=== PATIENT | female | born 1995 | race Caucasian/White ===

== ENCOUNTER → 2020-07-12 14:55 | Outpatient (CLI) | payer MEDICAID, SELFPAY ==
[2020-07-12 14:50] VITALS: BMI 31.7
[2020-07-12 15:17] LABS: Absolute Lymphocyte Count 2.22 X10^3/uL (0.83-4.51); Absolute Neutrophil Count 4.9 X10^3/uL (2.0-7.7); Basophil# 0.03 X10^3/uL; Basophil% 0.4 % (0-1); Eosinophils% 1.3 % (0-5); Hemoglobin 12.5 g/dL (12.0-15.0); Lymphocyte # 2.22 X10^3/ul (4.0); Lymphocyte % 28.3 % (19-41); Mean Corp Hgb Conc 32.9 g/dL (32-36); Mean Corpuscular Hgb 28.5 pg (27.0-32.0); Mean Corpuscular Volume 86.8 fL (81-99); Monocyte# 0.63 X10^3/uL; NRBC Flagged by Analyzer 0 % (0-5); Neutrophil # 4.85 X10^3/uL (2.7-7.7); Neutrophil % 61.7 % (47-70); Platelet Count 312 K/mm3 (150-450); RBC Distribution Width CV 11.7 % (11.6-14.6); RBC Distribution Width SD 37.4 fl (35.1-43.9); Red Blood Count 4.38 M/mm3 (4.2-5.4); White Blood Count 7.9 K/mm3 (4.4-11.0)
[2020-07-12 18:11] LABS: Amphetamine Urine VISTA NEGATIVE (<1000 ng/mL); Barbiturate Urine VISTA NEGATIVE (< 200 ng/mL); Benzodiazepine Urine VISTA NEGATIVE (< 200 ng/mL); Cocaine Urine VISTA NEGATIVE (< 300 ng/mL); Ecstacy Urine VISTA NEGATIVE (< 500 ng/mL); Methadone Urine VISTA NEGATIVE (< 300 ng/mL); PCP Urine VISTA NEGATIVE (< 25 ng/mL); THC Urine VISTA NEGATIVE (< 50 ng/mL); Vista UDS pH Range 6
[2020-07-13 09:00] LABS: HIV - WCH Non-Reactive (Nonreactive); Hepatitis B Surface Antigen Non-Reactive (Nonreactive); Hepatitis C Antibody Non-Reactive (Nonreactive)
[2020-07-13 10:20] LABS: Rubella IgG Reactive (Nonreactive)
[2020-07-17 03:06] LABS: Chlamydia By Nucleic Acid AMP Negative (Negative)
[2020-07-17 12:07] LABS: Gonococcus By Nucleic Acid AMP Negative (Negative)
[2020-07-19 02:10] LABS: Rapid Plasmin Reagin (RPR) NONREACTIVE (NONREACTIVE)
== END ==
PROVIDERS: Referring Provider Obstetrics & Gynecology; Visit Provider Obstetrics & Gynecology
DX: Z34.80 Encounter for supervision of other normal pregnancy, unspecified trimester (principal)
CPT/HCPCS: 36415; 80307; 85025; 86592; 86703; 86762; 86803; 86850; 86900; 86901; 87086; 87088; 87340; 87491; 87591

== ENCOUNTER → 2020-08-16 12:09 | Outpatient (CLI) | payer MEDICAID, SELFPAY ==
[2020-08-16 10:59] VITALS: BMI 30.9
[2020-08-16 13:14] LABS: NATERA MAILED SPECIMEN
== END ==
PROVIDERS: Referring Provider Obstetrics & Gynecology; Visit Provider Obstetrics & Gynecology
DX: Z34.82 Encounter for supervision of other normal pregnancy, second trimester (principal); Z31.430 Encounter of female for testing for genetic disease carrier status for procreative management
CPT/HCPCS: 36415

== ENCOUNTER → 2020-11-22 11:02 | Outpatient (CLI) | payer MEDICAID, SELFPAY ==
[2020-11-08 10:54] VITALS: BMI 32.2
[2020-11-22 11:25] LABS: Absolute Lymphocyte Count 1.64 X10^3/uL (0.83-4.51); Absolute Neutrophil Count 5.8 X10^3/uL (2.0-7.7); Basophil# 0.02 X10^3/uL; Basophil% 0.2 % (0-1); Eosinophil# 0.09 X10^3/uL; Eosinophils% 1.1 % (0-5); Hematocrit 33.2 % (37-47); Hemoglobin 10.9 g/dL (12.0-15.0); Lymphocyte # 1.64 X10^3/ul (4.0); Lymphocyte % 19.9 % (19-41); Mean Corp Hgb Conc 32.8 g/dL (32-36); Mean Corpuscular Hgb 29.5 pg (27.0-32.0); Mean Platelet Vol. 9.1 fl (6.2-12.0); Monocyte# 0.63 X10^3/uL; Monocyte% 7.6 % (0-10); NRBC Flagged by Analyzer 0 % (0-5); Neutrophil # 5.82 X10^3/uL (2.7-7.7); Neutrophil % 70.6 % (47-70); Platelet Count 288 K/mm3 (150-450); RBC Distribution Width CV 12.4 % (11.6-14.6); RBC Distribution Width SD 40.9 fl (35.1-43.9); Red Blood Count 3.69 M/mm3 (4.2-5.4); White Blood Count 8.3 K/mm3 (4.4-11.0)
[2020-11-22 11:35] LABS: Glucose Challenge Gest 1H 50g 125 mg/dL (70-140)
== END ==
LOC: LAB 11:03 → PAVLAB 11:07
PROVIDERS: Visit Provider Nurse Practitioner Women's Health
DX: Z13.1 Encounter for screening for diabetes mellitus (principal); Z34.80 Encounter for supervision of other normal pregnancy, unspecified trimester
CPT/HCPCS: 36415; 82950; 85025

== ENCOUNTER 2021-01-03 13:00 | Outpatient (CLI) | payer MEDICAID, SELFPAY ==
[2021-01-03 11:39] VITALS: BMI 33.9
[2021-01-03 13:05] VITALS: BMI 33.7
[2021-01-03 13:40] VITALS: BP 106/65; PULSE 85; TEMP 36.7; O2SAT 99
[2021-01-03 13:42] VITALS: PULSE 82; O2SAT 88
[2021-01-03 13:43] VITALS: BP 106/65; PULSE 85
[2021-01-03] MEDS: Lactated Ringers 1,000 ML 999 ML IV ×2 (13:59→14:55)
--- NOTE | 2021-01-04 16:20 | OB.TRI.PN ---
Progress Notes Date of Service: 01/03/21 Progress Note: Patient presents for triage evaluation secondary to possible late decel on monitor in office. Given 2L of IVF. Monitored for 2 hours with no further decels. Discharged to home in stable condition FHT: Moderate variability reactive no decelerations category I tracing [place]: Irregular Contractions Assessment and plan: Reactive NST, reassuring maternal and status patient discharged to home to follow-up at next scheduled visit. See problem list details for additional plan information. Multi Select Codes - Urinary/Genital Urinary/Genital CPT Codes: 48726-75 non-stress test Interp
== END 2021-01-03 16:15 | disposition home or self-care (01) ==
LOC: WPOUT 13:04 → WP 13:05
PROVIDERS: Referring Provider Obstetrics & Gynecology; Visit Provider Obstetrics & Gynecology
DX: O62.9 Abnormality of forces of labor, unspecified (principal); Z3A.00 Weeks of gestation of pregnancy not specified
CPT/HCPCS: 96360; 96361; 59025; 59050; 99218; J7120; G0378

== ENCOUNTER → 2021-01-21 15:09 | Outpatient (CLI) | payer MEDICAID, SELFPAY ==
[2021-01-16 10:28] VITALS: BMI 33.7
[2021-01-21 16:27] LABS: ALB/GLOB Ratio 0.6 RATIO (0.9-2.4); AST(SGOT) 9 U/L (15-37); Alanine Aminotransfer ALT/SGPT 7 U/L (13-56); Albumin, Serum 2.6 g/dL (3.2-5.0); Alkaline Phosphatase 137 U/L (45-117); Anion Gap 10 (5-15); BUN 3 mg/dL (7-18); BUN/Creat Ratio 5.6 RATIO (10-20); Calcium,Total 8.6 mg/dL (8.5-10.1); Chloride 108 mmol/L (98-107); Creatinine, Serum 0.53 mg/dL (0.55-1.02); EST Glomerular Filtration Rate 149 mL/min (>60); Est Glom Filt Rate - Afr Amer 180 mL/min (>60); Globulin 4.3 g/dL (2.2-4.2); Glucose 114 mg/dL (74-106); Potassium 3.2 mmol/L (3.5-5.1); Protein, Total 6.9 g/dL (6.4-8.2); Sodium Level 138 mmol/L (136-145)
== END ==
PROVIDERS: Referring Provider Obstetrics & Gynecology; Visit Provider Obstetrics & Gynecology
DX: O26.619 Liver and biliary tract disorders in pregnancy, unspecified trimester (principal); K83.1 Obstruction of bile duct; Z3A.00 Weeks of gestation of pregnancy not specified
CPT/HCPCS: 36415; 80053; 87081

== ENCOUNTER → 2021-01-31 12:41 | Outpatient (CLI) | payer MEDICAID, SELFPAY ==
[2021-01-31 12:01] VITALS: BMI 34.4
[2021-01-31 13:17] LABS: ALB/GLOB Ratio 0.6 RATIO (0.9-2.4); AST(SGOT) 9 U/L (15-37); Alanine Aminotransfer ALT/SGPT 8 U/L (13-56); Albumin, Serum 2.6 g/dL (3.2-5.0); Alkaline Phosphatase 158 U/L (45-117); Anion Gap 6 (5-15); BUN 3 mg/dL (7-18); BUN/Creat Ratio 6.2 RATIO (10-20); Calcium,Total 8.8 mg/dL (8.5-10.1); Chloride 107 mmol/L (98-107); Creatinine, Serum 0.48 mg/dL (0.55-1.02); EST Glomerular Filtration Rate 166 mL/min (>60); Est Glom Filt Rate - Afr Amer 201 mL/min (>60); Globulin 4.4 g/dL (2.2-4.2); Glucose 72 mg/dL (74-106); Potassium 3.9 mmol/L (3.5-5.1); Sodium Level 136 mmol/L (136-145)
== END ==
PROVIDERS: Visit Provider Obstetrics & Gynecology
DX: O99.713 Diseases of the skin and subcutaneous tissue complicating pregnancy, third trimester (principal); L29.9 Pruritus, unspecified; Z3A.00 Weeks of gestation of pregnancy not specified
CPT/HCPCS: 36415; 80053

== ENCOUNTER → 2021-02-07 13:51 | Outpatient (CLI) | payer MEDICAID, SELFPAY ==
[2021-02-07 13:28] VITALS: BMI 34.4
[2021-02-07 15:03] LABS: AST(SGOT) 12 U/L (15-37); Alanine Aminotransfer ALT/SGPT 8 U/L (13-56)
== END ==
PROVIDERS: Referring Provider Obstetrics & Gynecology; Visit Provider Obstetrics & Gynecology
DX: O99.713 Diseases of the skin and subcutaneous tissue complicating pregnancy, third trimester (principal); L29.9 Pruritus, unspecified; Z3A.00 Weeks of gestation of pregnancy not specified
CPT/HCPCS: 36415; 84450; 84460

== ENCOUNTER 2021-02-11 13:50 | Inpatient (IN) | payer MEDICAID, SELFPAY ==
[2021-02-07 13:28] VITALS: BMI 34.4
[2021-02-11] VITALS (33 sets, daily range): BP systolic 101–132; BP diastolic 56–79; PULSE 81–122; TEMP 36.3–37.4; O2SAT 97–100; BMI 34.7
[2021-02-11] MEDS: Lactated Ringers 1,000 ML 50 ML IV (14:20)
[2021-02-11] MEDS: Oxytocin 30 units/NS 500 ml 30 UNITS/500 ML IV.SOLN IV (14:30)
[2021-02-11 14:36] LABS: Absolute Neutrophil Count 6.4 X10^3/uL (2.0-7.7); Basophil# 0.03 X10^3/uL; Basophil% 0.3 % (0-1); Eosinophil# 0.07 X10^3/uL; Eosinophils% 0.8 % (0-5); Hematocrit 33.6 % (37-47); Hemoglobin 10.9 g/dL (12.0-15.0); Lymphocyte % 20.1 % (19-41); Mean Corp Hgb Conc 32.4 g/dL (32-36); Mean Corpuscular Hgb 27.9 pg (27.0-32.0); Mean Corpuscular Volume 86.2 fL (81-99); Mean Platelet Vol. 9.8 fl (6.2-12.0); Monocyte# 0.61 X10^3/uL; Monocyte% 6.8 % (0-10); NRBC Flagged by Analyzer 0 % (0-5); Neutrophil % 71.4 % (47-70); Platelet Count 310 K/mm3 (150-450); RBC Distribution Width CV 12.3 % (11.6-14.6); RBC Distribution Width SD 38.4 fl (35.1-43.9)
--- NOTE | 2021-02-11 14:44 | HP.PCM.OB_ITS ---
HPI - General General Date of Admission: 02/11/21 HPI Narrative ANDRIY GLASS, is a 25 F at 39 weeks who presents for induction of labor for cholestasis of Maternal Data Information TALYA Calculator Estimated Delivery Date Method Current WG Current Estimate 02/16/21 LMP (Certain) 39w 2d Other Estimates 02/21/21 Ultrasound #1 38w 4d PFSH Medical History (Updated 02/11/21 @ 14:[address] Callie Mckinney MD) Anxiety with depression Headache No significant medical problems Home Medications multivitamin no.47-iron fum 27 mg-folate no.1 1 mg-dha 300 mg capsule 1 cap PO DAILY 06/28/20 [History Last Taken 02/07/21] acetaminophen 325 mg capsule 325 mg PO ONCE PRN 07/12/20 [History Last Taken Unknown] magnesium oxide 420 mg tablet 420 mg PO DAILY 11/08/20 [History Last Taken 02/07/21] sertraline 100 mg tablet 100 mg PO QDAY #30 tab 11/08/20 [Rx Last Taken 02/07] Allergy/AdvReac Type Severity Reaction Status Date / Time No Known Allergies Allergy Verified 01/31/21 12:00 Family History Grandmother Cancer Grandmother Cancer Surgical History H/O knee surgery (~2008) Social History adopted: No household members: family housing: house number of children: 1 current occupational status: employed 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- [employer] pets and animals: No Smoking Status: Former smoker second hand exposure: No alcohol intake: current details: not while substance use type: does not use caffeine: Yes what type of physical activity do you participate in: walking frequency: 3-4 times per week seatbelt use: always do you feel safe at home: Yes additional social history: 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 Date Name GA/Weeks Outcome Route Bth Weight Gen Labor Lgth Anesthesia Del Locatn Provider FOB Unknown 01/2016 [place] 40 live - full term 8lbs 1oz M tyrone 7.5 hours epidural [facility] Arsh Delivery Date: No complications Jasmin Sacnhez Visit Details Expected Delivery Route/Plan Labor Preferences- CB/BF classes: no labor support person: Arsh labor intervention preferences: open to standard interventions, may decline eye ointment pain management options preferred: open to epidural cut cord/dad catch: cord, maybe , patient would like to try to help if doesn't : yes PP control planned: condoms discussed possible routes of delivery and associated risks: discussed possible delivery modalities and possible indications for each including R/B/A of , VAVD, FAVD and CS. questions answered. special requests: immediate skin to skin Plans covid status: raymond flu vaccine: declined tdap vaccine: given rhogam: na LARC form signed: yes movement and labor precautions reviewed. Problem list reviewed and updated with the most current plan of care details and appropriate orders placed. Relevant counseling for the gestational age provided. Continue routine care and follow up unless otherwise noted in visit notes/problem list details OB Flowsheet Initial Weight: 185 lb Date -?-?-?-?-?-?-?-?-?-?-?-?- EGA Weight BP Urine Prot -?-?-?-?-?-?-?-?-?-?-?-?- Glucose FHR FuHt Pres Dilation -?-?-?-?-?-?-?-?-?-?-?-?- Effaced St Visit Note 07/12/20 -?-?-?-?-?-?-?-?-?-?-?-?- 8w 5d 185 lb (+0 oz) 126/84 -?-?-?-?-?-?-?-?-?-?-?-?- 170 -?-?-?-?-?-?-?-?-?-?-?-?- SM- CRL cons wit h LMP 08/16/20 -?-?-?-?-?-?-?-?-?-?-?-?- 13w 5d 180 lb (-5 lb) 110/80 Negative -?-?-?-?-?-?-?-?-?-?-?-?- Negative 150 -?-?-?-?-?-?-?-?-?-?-?-?- GP - denies cram ping and bleeding. Nausea improved. Anxiety becoming worse - discussed medications vs counseling. Started zoloft. Decided wants genetic testing - having drawn today. 09/13/20 -?-?-?-?-?-?--?-?-?-?-?-?- 17w 5d 177 lb 6 oz (-7 lb 10 oz) 118/82 Negative -?-?-?-?-?-?-?-?-?-?-?-?- Negative 145 -?-?-?-?-?-?-?-?-?-?-?-?- GP - no cramping or bleeding. +FM. Discussed partner testing for +SMA carrier. 10/04/20 -?-?-?-?-?-?-?-?-?-?-?-?- 20w 5d 181 lb 2 oz (-3 lb 14 oz) 118/78 Negative -?-?-?-?-?-?-?-?-?-?-?-?- Negative 145 -?-?-?-?-?-?-?-?-?-?-?-?- GP - no cramping , LOF, VB, DFM. getting carrier screening today. Anatomy scan today. 11/08/20 -?-?-?-?-?-?-?-?-?-?-?-?- 25w 5d 188 lb (+3 lb) 110/74 Negative -?-?-?-?-?-?-?-?-?-?-?-?- Negative 145 25 -?-?-?-?-?-?-?-?-?-?-?-?- SM- no vb lof go od fm no regular ctx discussed headache treatment and prvention, declined additional meds. 11/22/20 -?-?-?-?-?-?-?-?-?-?-?-?- 27w 5d 190 lb 6 oz (+5 lb 6 oz) 108/66 Negative -?-?-?-?-?-?-?-?-?-?-?-?- Negative 153 28 -?-?-?-?-?-?-?-?-?-?-?-?- MH-NO VB, LOF. G ood FM. Anemia on blood work-start FE. Glucose pending. Leaving to drive to [place] tomorrow-travel precautions reviewed. MH-NO VB, LOF. Good FM. Ane anaya on blood work-start FE. Glucose pending. Leaving to drive to [place] tomorrow-travel precautions reviewed. Tdap LARC 12/06/20 -?-?-?-?-?-?-?-?-?-?-?-?- 29w 5d 193 lb (+8 lb) 110/76 Negative -?-?-?-?-?-?-?-?-?-?-?-?- Negative 150 29 -?-?-?-?-?-?-?-?-?-?-?-?- GP - no ctx, LOF , VB, DFM, ctx. Zoloft increased 4w ago and helping some with anxiety, but still anxious. 12/20/20 -?-?-?-?-?-?-?-?-?-?-?-?- 31w 5d 196 lb (+11 lb) 112/60 Negative -?-?-?-?-?-?-?-?-?-?-?-?- Negative 145 32 Cephalic -?-?-?-?-?-?-?-?-?-?-?-?- SM- no vb lof, g ood fm no regular ctx 01/03/21 -?-?-?-?-?-?-?-?-?-?-?-?- 33w 5d 197 lb 8 oz (+12 lb 8 oz) 100/74 Negative -?-?-?-?-?-?-?-?-?-?-?-?- Negative 130 34 Cephalic -?-?-?-?-?-?-?-?-?-?-?-?- GP - no LOF, VB, ctx. DFM over last 2 days - NST with isolated late decel. Sent to triage for monitoring and IV fluids. 01/16/21 -?-?-?-?-?-?-?-?-?-?-?-?- 35w 4d 200 lb 2 oz (+15 lb 2 oz) 100/70 Negative -?-?-?-?-?-?-?-?-?-?-?-?- Negative 145 35 Cephalic -?-?-?-?-?-?-?-?-?-?-?-?- GP - no LOF, VB, DFM, ctx. Discussed labor preferences and routes of delivery. 01/21/21 -?-?-?-?-?-?-?-?-?-?-?-?- 36w 2d 200 lb 2 oz (+15 lb 2 oz) 102/84 Negative -?-?-?-?-?-?-?-?-?-?-?-?- Negative 145 36 Cephalic 1 -?-?-?-?-?-?-?-?-?-?-?-?- 40 -3 GP - work in for itching in palms and soles. Symptoms intermittent, but lasts for a while when it occurs. Symptoms are not severe. Started 1 month ago, but becoming worse over the past week. Having intermittent heart palpitations - occurs at least 1x/day since October. GP - work in for itching on palms and soles. Cholestasis labs ordered. Also intermittent palpitations. No LOF, VB, DFM, regular ctx. GBS done today. NST done in office. 01/31/21 -?-?-?-?-?-?-?-?-?-?-?-?- 37w 5d 200 lb 8 oz (+15 lb 8 oz) 114/78 Negative -?-?-?-?-?-?-?-?-?-?-?-?- Negative 140 38 Cephalic 1 -?-?-?-?-?-?-?-?-?-?-?-?- 40 -3 GP - no LO F, VB, DFM, ctx. Cholestasis labs normal. Very worried because itching becoming worse. Reassurance provided. repeat labs ordered today. Recommend kick counts. 02/07/21 -?-?-?-?-?-?-?-?-?-?-?-?- 38w 5d 206 lb (+21 lb) 110/82 Negative -?-?-?-?-?-?-?-?-?-?-?-?- Negative 135 37 Cephalic 1 -?-?-?-?-?-?-?-?-?-?-?-?- 50 -1 SM- persis tent itching - repeat labs todya, bile acid still pending from last week.reviewed kick counts, no vb lof good fm 02/11/21 -?-?-?-?-?-?-?-?-?-?-?-?- 39w 2d 202 lb (+17 lb) 108/69 -?-?-?-?-?-?-?-?-?-?-?-?- -?-?-?-?-?-?-?-?-?-?-?-?- NST FHR Rate Baby A Baseline: 130 Variability:: Moderate Accelerations:: 15 x 15 Decelerations:: None NST Reactive:: Yes FHR Category:: Category I Uterine Activity:: irritability ROS Eyes Eyes: Reports systems reviewed and no addt'l complaints, except as documented ENT HEENT: Reports systems reviewed and no addt'l complaints, except as documented Cardiovascular Cardiovascular: Reports systems reviewed and no addt'l complaints, except as documented Respiratory/Chest Respiratory/Chest: Reports systems reviewed and no addt'l complaints, except as documented Gastrointestinal Gastrointestinal: Reports systems reviewed and no addt'l complaints, except as documented Genitourinary Genitourinary: Reports systems reviewed and no addt'l complaints, except as documented Musculoskeletal Musculoskeletal: Reports systems reviewed and no addt'l complaints, except as documented Integumentary Integumentary: Reports systems reviewed and no addt'l complaints, except as documented Neurologic Neurologic: Reports systems reviewed and no addt'l complaints, except as documented Psychiatric Psychiatric: Reports systems reviewed and no addt'l complaints, except as documented Endocrine Endocrinology: Reports systems reviewed and no addt'l complaints, except as documented Hematologic/Lymphatic Hematologic/Lymphatic: Reports systems reviewed and no addt'l complaints, except as documented Allergic/Immunologic Allergic/Immunologic: Reports systems reviewed and no addt'l complaints, except as documented Vital Signs Vital Signs Vital Signs: 02/11/21 14:01 02/11/21 14:02 02/11/21 14:03 Temperature 99.3 F H 99.3 F H Temperature Source Tympanic Pulse Rate 122 H 117 H Blood Pressure 108/69 BP Systolic 108 BP Diastolic 69 Pulse Ox 97 Weight Weight: 202 lb Body Mass Index (BMI) 34.7 Physical Exam Const alert, oriented x3, no apparent distress, average body habitus, healthy appearing and well nourished HEENT normocephalic and moist oral mucous membranes Head and Scalp: atraumatic Eyes PERRL and EOMs intact bilaterally Neck full ROM Resp normal respiratory effort, no retractions and no use of accessory muscles Cardio regular rate and regular rhythm GI soft to palpation, non-tender and non-distended Extremity normal to inspection and full ROM Skin no rashes or lesions noted Neuro no focal motor deficits and no sensory deficits noted Psych mental status grossly normal, affect normal, speech normal and activity/motor behavior normal Labs Labs Labs: Blood Type O POSITIVE Antibody Screen NEGATIVE Hct 33.6 % (37-47) L Hgb 10.9 g/dL (12.0-15.0) L Rubella IgG Antibody Reactive (Nonreactive) Hep Bs Antigen Non-Reactive (Nonreactive) Neisseria gonorrhoeae DNA (CASIE) Negative (Negative) HIV 1&2 Antibody Non-Reactive (Nonreactive) Glucose 1 Hr 50 gm 125 mg/dL (70-140) Miscellaneous Test Assessment & Plan (1) Encounter for induction of labor: PLAN: Patient presents IOL, plan management for with pitocin/AROM. Pain management: plans epidural. GBS negative. Management of any complications: none I have reviewed the [facility] and made any clinically relevant updates. (2) : QUALIFIERS: Weeks of gestation: 37 weeks Qualified Code(s): Z3A.37 - 37 weeks gestation of COMMENT: genetic- low risk and carrier done, declined NTD; NL anatomy, neg. GBS (3) Supervision of other normal : COMMENT: PRR TALYA 02/16/21 girl [place] PC: Etienne Roth: Arsh (4) Anxiety and depression: COMMENT: has been on medication in the past and has been to counseling. Worsening since beginning of . Started zoloft 50mg 08/16. Declines counseling at this time. 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 FOB neg 08/25 (7) History of tetanus, diphtheria, and acellular pertussis booster vaccination (Tdap): COMMENT: 11/22/20 (8) Anemia affecting , antepartum: COMMENT: Fe daily (9) 33 weeks gestation of : COMMENT: COVID test order 01/02/21 (10) pruritus: QUALIFIERS: Trimester: third trimester Qualified Code(s): O99.713 - Diseases of the skin and subcutaneous tissue complicating , third trimester; L29.9 - Pruritus, unspecified COMMENT: Itching on palms and soles x1mo. Symptoms mild. NST done in office 01/21. CMP nl. Bile acids nl. Increased itching 01/31 - repeat labs ordered (11) Cholestasis during in third trimester: COMMENT: Itching of palms and soles of feet. Bile acids 13. IOL 02/11
[2021-02-11] MEDS: Mag Hydrox/Al Hydrox/Simeth 30 ML UDC PO (17:19)
[2021-02-11] MEDS: Lactated Ringers 500 ML 999 ML IV (20:26)
[2021-02-11] MEDS: fentaNYL-bupivacaine (epidural) 100 ML BAG EPIDURAL (21:13)
[2021-02-11] MEDS: Oxytocin 30 units/NS 500 ml 30 UNITS/500 ML IV.SOLN 334 UNITS IV (22:36)
--- NOTE | 2021-02-11 22:50 | EX.PCM.OBRPT ---
Assessment & Plan (1) (spontaneous vaginal delivery): (2) Encounter for induction of labor: (3) Cholestasis during in third trimester: COMMENT: Itching of palms and soles of feet. Bile acids 13. IOL 02/11 (4) : QUALIFIERS: Weeks of gestation: 37 weeks Qualified Code(s): Z3A.37 - 37 weeks gestation of COMMENT: genetic- low risk and carrier done, declined NTD; NL anatomy, neg. GBS (5) Supervision of other normal : COMMENT: PRR TALYA 02/16/21 girl [place] PC: Etienne Roth: Arsh (6) Anxiety and depression: COMMENT: has been on medication in the past and has been to counseling. Worsening since beginning of . Started zoloft 50mg 08/16. Declines counseling at this time. 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 FOB neg 08/25 (9) History of tetanus, diphtheria, and acellular pertussis booster vaccination (Tdap): COMMENT: 11/22/20 (10) Anemia affecting , antepartum: COMMENT: Fe daily (11) pruritus: QUALIFIERS: Trimester: third trimester Qualified Code(s): O99.713 - Diseases of the skin and subcutaneous tissue complicating , third trimester; L29.9 - Pruritus, unspecified COMMENT: Itching on palms and soles x1mo. Symptoms mild. NST done in office 01/21. CMP nl. Bile acids nl. Increased itching 01/31 - repeat labs ordered Maternal Data Information TALYA Calculator Estimated Delivery Date Method Current WG Current Estimate 02/16/21 LMP (Certain) 39w 2d Other Estimates 02/21/21 Ultrasound #1 38w 4d Vaginal Delivery Maternal Presentation Maternal Presentation: Medically Indicated Induction Maternal Presentation: 25-year-old G3, P1 at 39 weeks gestation admitted for induction of labor for cholestasis of . Patient was induced with Pitocin. Type of Induction: Pitocin Medical Reason for Induction: Maternal Medical Condition: list: (Cholestasis of ) Operative Information Date of Procedure: 02/11/21 Pre-Operative Diagnosis: Term , induction for cholestasis of Post-Operative Diagnosis: Same Surgery / Procedure Performed: Spontaneous Vaginal Delivery Type of Anesthesia: Epidural Drain: Heath to straight drain Estimated Blood Loss: 200 Findings Description of Procedure: Patient began pushing and delivered the head in the ЕЛЕНА presentation. The head was delivered atraumatically and no nuchal cord was noted. The anterior and posterior shoulders delivered without complication followed by the rest of the infant and the was placed on the maternal abdomen. Delayed cord clamping was employed for approximately 60 seconds. Cord was clamped and cut and gentle traction was applied to the cord and the placenta delivered spontaneously immediately following it was noted to be intact with three-vessel cord. The perineum and vagina were inspected and a midline second-degree perineal laceration was noted and repaired in the standard fashion using 3-0 Vicryl Rapide suture. EBL was 200 cc. Patient and tolerated delivery well. Presentation: Vertex and ЕЛЕНА Amniotic Membrane Rupture Type: Spontaneous Amniotic Fluid Description: Clear Placental Delivery Description: Spontaneous Placenta Disposition: [facility] Cord Vessel Description: 3 Vessels Cord Entanglement: None Infant A Gender: Female Delayed Cord Clamping: Yes Post Vaginal Delivery Medications Given After Delivery: IV Pitocin Episiotomy Description: None Laceration: Midline, Perineal Extension/lac and 2nd degree Complication Complications: None Procedures Urinary/Genital [id number]: 13260 Vaginal Delivery+ Care([facility])
--- NOTE | 2021-02-11 22:54 | PCM.DC ---
Discharge Instructions Diet Discharge Diet: No restrictions Activity Discharge Activity: Return to Normal Activity, May not drive while taking narcotic pain medications. and May Shower May resume sexual activity in: 4-6 weeks Dressing / Incision Call your doctor if your incision/area has: Continuous Slow Oozing, Sudden Increased Bleeding, Increased Pain/ Swelling, Increased Redness and Foul Smelling Discharge Follow Up Care When: Call to make an appointment with your doctor in 6 weeks. If you had elevated Blood Pressure or 4th degree laceration you will need to be seen in 2 weeks. Test Results: Test results from this visit will be discussed in further detail at your follow-up appointment, if applicable. Discharge Plan Admission Admit Date/Time: 02/11/21 13:50 Primary Reason for Your Visit: Induction of labor Attending Provider: Callie Mckinney Primary Care Provider: Care Physician,Sue Primary Instructions Patient Instructions: After a Vaginal Discharge Orders/Prescriptions Prescriptions: New naproxen 250 MG tablet 250 - 500 mg PO Q8H PRN PRN (Reason: MILD PAIN) Qty: 30 RF: 1 Continued acetaminophen [Tylenol] 325 mg capsule 325 mg PO ONCE PRN (Reason: Pain) RF: 0 PNV-DHA 27 mg iron-1 mg -300 mg capsule 1 cap PO DAILY RF: 0 magnesium oxide 420 mg tablet 420 mg PO DAILY RF: 0 sertraline [Zoloft] 100 mg tablet 100 mg PO QDAY Qty: 30 RF: 12 Referrals / Follow Up: Care Physician,No Primary [Primary Care Provider] -
[2021-02-12] VITALS (13 sets, daily range): BP systolic 113–131; BP diastolic 53–83; PULSE 74–100; RESP 16–18; TEMP 36.6–36.7; O2SAT 98–99
[2021-02-12] MEDS: Acetaminophen 500 MG Tablet 1000 MG PO ×3 (02:43→20:30)
--- NOTE | 2021-02-12 07:52 | PN.OBGYN_ITS ---
Subjective Subjective Patient doing well without complaints. Tolerating PO. Ambulating and voiding without difficulty. feeding well. Denies chest pain, shortness of breath, calf pain/swelling, fevers, chills, lightheadedness. Objective Data Objective Data Vital Signs: Vital Signs Temp Pulse Resp BP Pulse Ox 98.1 F 95 18 116/53 L 99 02/12/21 00:34 02/12/21 03:15 02/12/21 03:15 02/12/21 03:15 02/12/21 00:03 Oxygen Delivery Method Room Air Weight: 202 lb Body Mass Index (BMI) 34.7 Intake & Output: Intake and Output for Last 24 Hours 02/10/21 02/11/21 02/12/21 23:59 23:59 23:59 Intake Total 1332.02 / 1332.02 333 / 333 Output Total 700 / 700 400 / 400 Balance 632.02 / 632.02 -67 / -67 Lab / Micro Data Result Diagrams: 02/11/21 14:20 Labs: Laboratory Results - last 24 hr 02/11/21 02/11/21 14:20 14:20 WBC 9.0 RBC 3.90 L Hgb 10.9 L Hct 33.6 L MCV 86.2 MCH 27.9 MCHC 32.4 RDW Std Deviation 38.4 RDW Coeff of Melba 12.3 Plt Count 310 MPV 9.8 Immature Gran % (Auto) 0.600 Neut % (Auto) 71.4 H Lymph % (Auto) 20.1 [place] % (Auto) 6.8 Eos % (Auto) 0.8 Baso % (Auto) 0.3 Absolute Neuts (auto) 6.4 Absolute Lymphs (auto) 1.80 Nucleated RBC % 0 Blood Type O POSITIVE Antibody Screen NEGATIVE Micro: Microbiology 02/11/21 14:25 Mucosa - Nose SARS-CoV-2 Antigen (Rapid) - Final Physical Exam Const alert and oriented x3 HEENT normocephalic Eyes PERRL Neck full ROM Resp normal respiratory effort GI soft to palpation GI Narrative: FF below U Assessment & Plan (1) (spontaneous vaginal delivery): COMMENT: GP , IOL for cholestasis, 02/11/21 girl [place] PC: Etienne Roth: Arsh PLAN: s/p PPD # 1 1. routine post delivery care 2. breast feeding- support given 3. rh positive 4. rubella immune
[2021-02-12] MEDS: Naproxen 250 MG Tablet 500 MG PO ×2 (09:49→18:24)
[2021-02-12] MEDS: Sertraline 100 MG Tablet PO (09:49)
--- NOTE | 2021-02-12 16:06 | CASEMGMT ---
Social Work Labor and Delivery Consult received and noted. This principal technical writer presented to mother of baby (MOB) room. Visitor present and holding baby. This principal technical writer checked in with MOB to see about discharge timeframe. MOB reports won't be going home until tomorrow. Offered to come back in the morning hours tomorrow, so as to allow for continued visit. MOB agreeable to having visit delayed until 02.13.2021. Plan: See MOB on 02.13.2021 for assessment and consult. -JALEN Krueger, TITLE INSURANCE AGENT
[2021-02-13 03:40] VITALS: BP 110/60; PULSE 76; RESP 18; TEMP 36.7
[2021-02-13] MEDS: Acetaminophen 500 MG Tablet 1000 MG PO (03:46)
[2021-02-13 07:38] VITALS: BP 116/77; PULSE 69; RESP 18; TEMP 36.6; O2SAT 97
--- NOTE | 2021-02-13 07:51 | PN.OBGYN_ITS ---
Subjective Subjective Patient doing well without complaints. Tolerating PO. Ambulating and voiding without difficulty. feeding well. Denies chest pain, shortness of breath, calf pain/swelling, fevers, chills, lightheadedness. Objective Data Objective Data Vital Signs: Vital Signs Temp Pulse Resp BP Pulse Ox 97.8 F 69 18 116/77 97 02/13/21 07:38 02/13/21 07:38 02/13/21 07:38 02/13/21 07:38 02/13/21 07:38 Oxygen Delivery Method Room Air Weight: 202 lb Body Mass Index (BMI) 34.7 Intake & Output: Intake and Output for Last 24 Hours 02/11/21 02/12/21 02/13/21 23:59 23:59 23:59 Intake Total 1332.02 / 1332.02 333 / 333 Output Total 700 / 700 400 / 400 Balance 632.02 / 632.02 -67 / -67 Lab / Micro Data Result Diagrams: 02/11/21 14:20 Micro: Microbiology 02/11/21 14:25 Mucosa - Nose SARS-CoV-2 Antigen (Rapid) - Final Physical Exam Const alert and oriented x3 HEENT normocephalic Eyes PERRL Neck full ROM Resp normal respiratory effort GI soft to palpation GI Narrative: FF below U Assessment & Plan (1) (spontaneous vaginal delivery): COMMENT: GP , IOL for cholestasis, 02/11/21 girl -[place] PC: Etienne Roth: Arsh PLAN: s/p PPD # 2 1. routine post delivery care 2. breast feeding- support given 3. rh positive 4. rubella immune 5. home today
[2021-02-13] MEDS: Sertraline 100 MG Tablet PO (10:00)
--- NOTE | 2021-02-13 14:15 | CASEMGMT ---
Social Work Brief Assessment - Labor and Delivery Unit Patient Address: [address] [place] [address], [place] [address] Phone number: [phone] Date of Referral/Notification: 02.12.2021 Time of Referral: 236 Referred By: Dr. Mckinney Reason for Referral: Maternal historyo of anxiety, depression, and depression. Date of Intervention: 02.13.2021 Time of Intervention: 1220 Informant: Medical record and mother of baby (MOB) Anel Danielson; father of baby (FOB) Arsh Clemens also present. History: SERGE is a 25 year old single female, involved with the FOB for last 6 years. MOB and FOB now have 2 children: Etienne (born 01/2016 at [facility]), and baby girl Camille Clemens (born 02.11.2021). SERGE is G4, P1 to 2 after delivering Camille. Reports history of 2 chemical pregnancies between Eteinne and Camille. 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 MOB reports history of depression and anxiety. Record indicates diagnosis in the 3rd grade with medication management throughout childhood and adolescence. MOB reports belief to have had some depression with delayed onset, at about 6 months after Etienne. MOB reports during this did decided to start on Zoloft and has found this to be helpful. No reports of any substance use issues. Maternal drug screen negative on 07.12.2020. SERGE is a former tobacco smoker. 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 MOB reports to have good support from FOB, her parents, and FOB's mother. Assessment: Met with MOB and FOB together. Did have a few minutes alone with MOB during which time MOB denied any safety concerns in the home with the FOB. MOB receptive to social work visit, talkative and engaged in conversation. FOB also an active participant in conversation, presenting as supportive. MOB plans to remain on antidepressants in the period, and would be receptive to counseling if needed. MOB discussed life changes in the last year. Supportive listening offered. FOB will be off for 2 weeks at home going. MOB also has family to call on for support if needed. MOB endorses feeling a connection to the baby, and reports that breast feeding is going pretty well, though baby does have a tongue tie. MOB denies any concerns with home going and accepted a packet on mood and anxiety disorders, including local and online supports. MOB expressed appreciation for information provided. No concerns voiced by nursing staff regarding mother/child bonding or interactions. MOB with bright affect, mood congruent to content. Good eye contact. Handled baby gently and appropriate during social work visit, working on breast feeding for a short time. Plan: MOB and baby to discharge home when ready. Resources given for mood and anxiety disorders, as well as resource list for [facility]. No further needs requested or indicated. -MIKE Krueger, LEGAL ARBITRATOR
== END 2021-02-13 15:40 | disposition home or self-care (01) | DRG 560 ==
PROVIDERS: Admitting Provider Obstetrics & Gynecology; Referring Provider Obstetrics & Gynecology; Visit Provider Obstetrics & Gynecology
DX: O26.62 Liver and biliary tract disorders in childbirth (principal); K83.1 Obstruction of bile duct; O26.23 Pregnancy care for patient with recurrent pregnancy loss, third trimester; O99.02 Anemia complicating childbirth; D64.9 Anemia, unspecified; O26.893 Other specified pregnancy related conditions, third trimester; L29.9 Pruritus, unspecified; O99.344 Other mental disorders complicating childbirth; F32.9 Major depressive disorder, single episode, unspecified; F41.9 Anxiety disorder, unspecified; O70.1 Second degree perineal laceration during delivery; Z3A.39 39 weeks gestation of pregnancy; Z37.0 Single live birth; Z28.21 Immunization not carried out because of patient refusal; Z87.891 Personal history of nicotine dependence
CPT/HCPCS: 59025; 59050; 85025; 86850; 86900; 86901; 87426; 99218; J7120; G0378

== ENCOUNTER → 2021-03-25 17:09 | Outpatient (CLI) | payer MEDICAID, SELFPAY ==
[2021-03-25 13:39] VITALS: BMI 30.6
[2021-03-28 15:32] LABS: HPV Reflexed? NOT INDICATED
== END ==
PROVIDERS: Referring Provider Obstetrics & Gynecology; Visit Provider Obstetrics & Gynecology
DX: Z12.4 Encounter for screening for malignant neoplasm of cervix (principal)
CPT/HCPCS: 88175; G0145

== ENCOUNTER → 2024-03-09 | Outpatient (CLI) | payer MEDICAID, SELFPAY ==
[2024-03-09 12:54] LABS: Anion Gap 3 (5-15); BUN 8 mg/dL (7-18); BUN/Creat Ratio 13.9 RATIO (10-20); Calcium,Total 9.2 mg/dL (8.5-10.1); Chloride 107 mmol/L (98-107); Creatinine, Serum 0.58 mg/dL (0.55-1.02); EST Glomerular Filtration Rate 133 mL/min (>60); Est Glom Filt Rate - Afr Amer 160 mL/min (>60); Glucose 87 mg/dL (74-106); Sodium Level 138 mmol/L (136-145)
[2024-03-09 12:58] LABS: Vitamin B12 297 pg/mL (211-911); Vitamin D,25 Hydroxy 19.6 ng/mL
[2024-03-14 06:07] LABS: Vitamin A, Retinol 30.8 ug/dL (18.9-57.3)
== END | disposition home or self-care (01) ==
LOC: LAB 11:58
PROVIDERS: Referring Provider Nurse Practitioner Family; Visit Provider Nurse Practitioner Family
DX: N92.6 Irregular menstruation, unspecified (principal)
CPT/HCPCS: 36415; 80048; 82306; 82607; 84590

== ENCOUNTER → 2024-07-21 | Outpatient (CLI) | payer MEDICAID, SELFPAY ==
[2024-07-21 15:38] LABS: Absolute Lymphocyte Count 2.44 X10^3/uL (0.83-4.51); Absolute Neutrophil Count 5.5 X10^3/uL (2.0-7.7); Basophil# 0.03 X10^3/uL; Basophil% 0.3 % (0-1); Eosinophil# 0.15 X10^3/uL; Eosinophils% 1.7 % (0-5); Hematocrit 37.2 % (37-47); Hemoglobin 12.5 g/dL (12.0-15.0); Lymphocyte # 2.44 X10^3/ul (0.83-4.51); Lymphocyte % 27.9 % (19-41); Mean Corp Hgb Conc 33.6 g/dL (32-36); Mean Corpuscular Hgb 29.1 pg (27.0-32.0); Mean Corpuscular Volume 86.7 fL (81-99); Mean Platelet Vol. 9.4 fl (6.2-12.0); Monocyte# 0.58 X10^3/uL; Monocyte% 6.6 % (0-10); NRBC Flagged by Analyzer 0 % (0-5); Neutrophil # 5.53 X10^3/uL (2.7-7.7); Neutrophil % 63.3 % (47-70); Platelet Count 322 K/mm3 (150-450); RBC Distribution Width CV 11.9 % (11.6-14.6); RBC Distribution Width SD 37.8 fl (35.1-43.9); Red Blood Count 4.29 M/mm3 (4.2-5.4); White Blood Count 8.8 K/mm3 (4.4-11.0)
[2024-07-21 15:52] LABS: AST(SGOT) 8 U/L (15-37); Alanine Aminotransfer ALT/SGPT 16 U/L (13-56); Albumin, Serum 3.7 g/dL (3.2-5.0); Alkaline Phosphatase 48 U/L (45-117); Anion Gap 7 (5-15); BUN 7 mg/dL (7-18); BUN/Creat Ratio 14.5 RATIO (10-20); Chloride 105 mmol/L (98-107); Creatinine, Serum 0.48 mg/dL (0.55-1.02); EST Glomerular Filtration Rate 161 mL/min (>60); Est Glom Filt Rate - Afr Amer 195 mL/min (>60); Globulin 3.8 g/dL (2.2-4.2); Glucose 83 mg/dL (74-106); Potassium 3.4 mmol/L (3.5-5.1); Protein, Total 7.5 g/dL (6.4-8.2); Sodium Level 135 mmol/L (136-145)
[2024-07-21 16:24] LABS: Hemoglobin A1c 4.9 % (3.8-5.6)
[2024-07-21 18:11] LABS: HIV - WCH Non-Reactive (Nonreactive); Hepatitis B Surface Antigen Non-Reactive (Nonreactive); Hepatitis C Antibody Non-Reactive (Nonreactive); Rubella IgG Reactive (Nonreactive); Syphilis Antibodies Non-reactive
[2024-07-25 21:07] LABS: Chlamydia By Nucleic Acid AMP Negative (Negative); Gonococcus By Nucleic Acid AMP Negative (Negative)
[2024-07-29 12:47] LABS: HPV Reflexed? NOT INDICATED
== END | disposition home or self-care (01) ==
LOC: BWCLAB 13:23
PROVIDERS: Referring Provider Advanced Practice Midwife; Visit Provider Advanced Practice Midwife
DX: Z34.90 Encounter for supervision of normal pregnancy, unspecified, unspecified trimester (principal)
CPT/HCPCS: 36415; 80053; 83036; 85025; 86703; 86762; 86780; 86803; 86850; 86900; 86901; 87086; 87088; 87340; 87491; 87591; 88175; G0145

== ENCOUNTER → 2024-08-18 | Outpatient (CLI) | payer MEDICAID, SELFPAY | END | disposition home or self-care (01) | LOC: BWCLAB 14:26 | PROVIDERS: Referring Provider Advanced Practice Midwife; Visit Provider Advanced Practice Midwife | DX: Z34.82 Encounter for supervision of other normal pregnancy, second trimester (principal) | CPT/HCPCS: 36415 ==

== ENCOUNTER → 2024-11-14 | Outpatient (CLI) | payer MEDICAID, SELFPAY | END | disposition home or self-care (01) | LOC: BWCLAB 13:36 | PROVIDERS: Referring Provider Advanced Practice Midwife; Visit Provider Advanced Practice Midwife | DX: Z00.00 Encounter for general adult medical examination without abnormal findings (principal) | CPT/HCPCS: 36415 ==

== ENCOUNTER → 2024-12-06 | Outpatient (CLI) | payer MEDICAID, SELFPAY ==
[2024-12-06 17:03] LABS: Absolute Lymphocyte Count 1.81 X10^3/uL (0.83-4.51); Absolute Neutrophil Count 6.4 X10^3/uL (2.0-7.7); Basophil# 0.03 X10^3/uL; Basophil% 0.3 % (0-1); Eosinophil# 0.11 X10^3/uL; Eosinophils% 1.2 % (0-5); Hematocrit 36.3 % (37-47); Hemoglobin 11.9 g/dL (12.0-15.0); Lymphocyte # 1.81 X10^3/ul (0.83-4.51); Lymphocyte % 20.1 % (19-41); Mean Corp Hgb Conc 32.8 g/dL (32-36); Mean Corpuscular Hgb 29.9 pg (27.0-32.0); Mean Corpuscular Volume 91.2 fL (81-99); Mean Platelet Vol. 9.6 fl (6.2-12.0); Monocyte# 0.59 X10^3/uL; Monocyte% 6.5 % (0-10); NRBC Flagged by Analyzer 0 % (0-5); Neutrophil # 6.44 X10^3/uL (2.7-7.7); Neutrophil % 71.5 % (47-70); Platelet Count 329 K/mm3 (150-450); RBC Distribution Width CV 12.7 % (11.6-14.6); RBC Distribution Width SD 41.9 fl (35.1-43.9); Red Blood Count 3.98 M/mm3 (4.2-5.4)
[2024-12-06 20:32] LABS: Glucose Challenge Gest 1H 50g 86 mg/dL (70-140); HIV Nonreactive (Nonreactive)
[2024-12-06 20:35] LABS: ALB/GLOB Ratio 1.1 RATIO (0.9-2.4); AST(SGOT) 12 U/L (<=31); Alanine Aminotransfer ALT/SGPT 6 U/L (<=34); Albumin, Serum 3.8 g/dL (3.5-5.0); Alkaline Phosphatase 101 U/L (35-104); Anion Gap 13 (5-15); BUN 4 mg/dL (4-19); BUN/Creat Ratio 9.8 RATIO (10-20); Calcium,Total 9.2 mg/dL (7.6-11.0); Carbon Dioxide 21.5 mmol/L (21.0-32.0); Chloride 103 mmol/L (98-108); Creatinine, Serum 0.41 mg/dL (0.70-1.20); EST Glomerular Filtration Rate 136 (>60); Globulin 3.5 g/dL (2.2-4.2); Glucose 86 mg/dL (70-99); Potassium 3.3 mmol/L (3.3-5.1); Protein, Total 7.3 g/dL (5.9-8.4); Sodium Level 137 mmol/L (133-145); Total Bilirubin < 0.15 mg/dL (0.00-1.30)
[2024-12-06 21:52] LABS: Syphilis Antibodies Nonreactive (Nonreactive)
== END | disposition home or self-care (01) ==
LOC: BWCLAB 13:40
PROVIDERS: Nurse Practitioner Women's Health; Referring Provider Advanced Practice Midwife; Visit Provider Advanced Practice Midwife
DX: O09.90 Supervision of high risk pregnancy, unspecified, unspecified trimester (principal); Z87.19 Personal history of other diseases of the digestive system; Z3A.00 Weeks of gestation of pregnancy not specified; Z13.1 Encounter for screening for diabetes mellitus
CPT/HCPCS: 36415; 80053; 82950; 85025; 86703; 86780

== ENCOUNTER → 2025-01-06 | Outpatient (CLI) | payer MEDICAID, SELFPAY ==
--- NOTE | 2025-01-06 08:52 | US_ITS ---
PROCEDURE: OB LIMITED WITH BIOMETRICS (USOBGROWTH), 01/06/2025 REASON FOR EXAM: SUSPECT CHOLESTASIS OF . Reportedly, at 33 weeks and 2 days with TALYA 02/22/2025 by previously established dates. TECHNIQUE: Grayscale and color/spectral doppler transabdominal pelvic ultrasound was performed with attention to the uterus and associated gestation. COMPARISON: None FINDINGS: A single intrauterine gestational is identified. Cardiac activity: Present, 134 bpm. position: Cephalic. Amniotic Fluid Index: 16.2 (normal 5-25), deepest vertical pocket 5.2 (normal 2-8). Placenta: Posterior with calcifications. No definite or visualized previa. biometry: Biparietal diameter: 8.3 cm, corresponding to 33 weeks and 1 day. Head circumference: 30.8 cm, corresponding to 34 weeks and 3 days. Occipitofrontal diameter: 10.8 cm, corresponding to 34 weeks and 5 days. Abdominal circumference: 28.9 cm, corresponding to 32 weeks and 6 days. Femur length: 6.3 cm, corresponding to 32 weeks and 6 days. Composite gestational age: 33 weeks and 4 days Estimated Weight (EFW): 2096 g +/-314 g, 33.4 percentile. Estimated delivery date (TALYA) based on composite gestational age: 0602/20/2025. Maternal anatomy: Cervix: Closed, 5.4 cm. Right ovary: Nonvisualized likely due to the gravid uterus. Left ovary: Nonvisualized likely due to the gravid uterus. US/OB Limited With Biometrics IMPRESSION: 1. Single live intrauterine at 33 weeks 4 days with TALYA 02/20/2025 by today's measurements, compatible with previously established dates. 2. Estimated weight 2096 g +/-314 g, 33.4 percentile based on provided pr eviously established dates. biometry as above. 3. Additional description as above. Reading Location: [id number]
== END | disposition home or self-care (01) ==
LOC: US 08:50
PROVIDERS: Referring Provider Obstetrics & Gynecology; Visit Provider Obstetrics & Gynecology
DX: O26.642 Intrahepatic cholestasis of pregnancy, second trimester (principal); Z3A.00 Weeks of gestation of pregnancy not specified
CPT/HCPCS: 76816

== ENCOUNTER → 2025-01-27 | Outpatient (CLI) | payer MEDICAID, SELFPAY | END | disposition home or self-care (01) | LOC: LABSPEC 11:57 | PROVIDERS: Referring Provider Obstetrics & Gynecology; Visit Provider Obstetrics & Gynecology | DX: O09.93 Supervision of high risk pregnancy, unspecified, third trimester (principal); Z3A.00 Weeks of gestation of pregnancy not specified | CPT/HCPCS: 87081 ==

== ENCOUNTER 2025-02-13 15:57 | Inpatient (IN) | payer MEDICAID, SELFPAY ==
[2025-02-13] VITALS (22 sets, daily range): BP systolic 124–144; BP diastolic 69–86; PULSE 81–111; RESP 16–18; TEMP 36.9–37.4; O2SAT 98–100; BMI 36.1
--- NOTE | 2025-02-13 16:15 | HP.PCM.OB_ITS ---
HPI - General General Date of Admission: 02/13/25 Date of Service: 02/13/25 HPI Narrative ANDRIY GLASS, is a 29 F at 38.5 weeks who presents to unit after fall. Late deceleration noted on monitor. Overall reassuring. Plan for induction but likely in early labor. cervical change noted from / to - Maternal Data Information TALYA Calculator Estimated Delivery Date Method Current WG Current Estimate 02/22/25 Ultrasound #1 38w 5d Other Estimates 02/27/25 LMP (Certain) 38w 0d Final TALYA: 02/22/25 Final TALYA Source: US >20 weeks Gestational age: 38.5 [facility] Medical History H/O cholelithiasis Cessation of tobacco use prior to (spontaneous vaginal delivery) Cholestasis during in third trimester Headache H/O miscarriage, currently Anxiety and depression No significant medical problems Home Medications ?Medication ?Instructions ?Recorded ?Last Taken ?Type docosahexaenoic acid 200 mg 1 mg PO DAILY 07/08/24 08:00 History capsule ( DHA) 1 mg Allergy/AdvReac Type Severity Reaction Status Date / Time No Known Allergies Allergy Verified 02/13/25 13:55 Family History Grandmother Uterine cancer Breast cancer Grandmother Rectal cancer Father Bladder cancer Surgical History H/O knee surgery (~2008) Social History adopted: No household members: significant other and children housing: house number of children: 2 current occupational status: employed 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- [employer] current occupational exposures/hazards: No pets and animals: No history of recent travel: No sexually active: Yes Smoking Status: Former smoker quit date: 09/14/14 second hand exposure: No alcohol intake: current alcohol intake frequency: holidays/special occasions only details: not while substance use type: does not use well-balanced diet: daily or most days caffeine: No eating out: 1-3 times/week during the past year weight has: remained stable what type of physical activity do you participate in: none seatbelt use: always do you feel safe at home: Yes additional social history: Engaged: Arsh- [employer] History 5 Elective abortions Hx Para 2 Spontaneous abortions 2 Hx # Term Pregnancies Ectopic pregnancies Hx # Pregnancies Multiple births # of living children 2 Past Pregnancies Del. Date Name GA/Weeks Outcome Route Bth Weight Gen Labor Lgth Anesthesia Del Locatn Provider FOB 01/14/16 Etienne 40 live - full term 8lbs 1oz Male 7.5 hours epidural [facility] 03/14/20 Chemical spontaneous 02/11/21 [place] 39 live - full term 7lbs 2oz Female ep idural [facility] Dr. Mckinney [place] 11/13/23 Chemical Delivery Date: 01/14/16 Last Updated by: Jasmin Sanchez No complications Delivery Date: 02/11/21 Last Updated by: Tayla Duque Induced for cholestasis Visit Details Expected Delivery Route/Plan Labor Preferences- CB/BF classes: no labor support person: Arsh labor intervention preferences: [] pain management options preferred: does not want an epidural unless hindering from progressing in labor cut cord/dad catch: cord : yes PP control planned: discussed discussed possible routes of delivery and associated risks: [] special requests: would like delayed cord clamping until no longer pulsating. Plans Covid status: [] Flu vaccine: [] Tdap vaccine: declines Rhogam: NA LARC form signed: yes Problem list reviewed and updated with the most current plan of care details and appropriate orders placed. Relevant counseling for the gestational age provided. Continue routine care and follow up unless otherwise noted in visit notes/problem list details OB Flowsheet Initial Weight: 175 lb Date -?-?-?-?-?--?-?-?-?-?-?-?- EGA Weight BP Urine Prot -?-?-?-?-?-?-?-?-?-?-?-?- Glucose FHR FuHt Pres Dilation -?-?-?-?-?-?-?-?-?-?-?-?- Effaced St Visit Note 07/21/24 -?-?-?-?-?-?-?-?-?-?-?-?- 9w 1d 175 lb (+0 oz) 113/76 -?-?-?-?-?-?-?-?-?-?-?-?- 175 -?-?-?-?-?-?-?-?-?-?-?-?- KW- CRL not cons with dates. TALYA adjusted. declines NIPT today. 08/18/24 -?-?-?-?-?-?-?-?-?-?--?-?- 13w 1d 177 lb 6 oz (+2 lb 6 oz) 123/78 Negative -?-?-?-?-?-?-?-?-?-?-?-?- Negative 154 -?-?-?-?-?-?-?-?-?-?-?-?- KW- work in for JV. No spotting or cramping. US ordered. blood work today. 09/16/24 -?-?-?-?-?-?-?-?-?-?-?-?- 17w 2d 181 lb (+6 lb) 116/78 Trace -?-?-?-?-?-?-?-?-?-?-?-?- Negative 160 -?-?-?-?-?-?-?-?-?-?-?-?- KW- NO vb/lof/ct x. good fm. needs to set up US- number given. 10/17/24 -?-?-?-?-?-?-?-?-?-?-?-?- 21w 5d 183 lb 4 oz (+8 lb 4 oz) 102/68 Negative -?-?-?-?-?-?-?-?-?-?-?-?- Negative 154 -?--?-?-?-?-?-?-?-?-?-?-?- JV- no lof, vagi nal bleeding, or dec fm. it's a boy! normal anatomy scan. just getting over flu A. 11/14/24 -?-?-?-?-?-?-?-?-?-?-?-?- 25w 5d 192 lb 6 oz (+17 lb 6 oz) 112/75 Negative -?-?-?-?-?-?-?-?-?-?-?-?- Negative 155 26 -?-?-?-?-?-?-?-?-?-?-?-?- KW- no vb/lof/ct x. good fm. having some mild itching of feet and hands. hx of cholestasis. baseline labs today. 12/06/24 -?-?-?-?-?-?-?-?-?-?-?-?- 28w 6d 195 lb 2 oz (+20 lb 2 oz) 120/80 Negative -?-?-?-?-?-?-?-?-?-?-?-?- Negative 148 29 -?-?-?-?-?-?-?-?-?-?-?-?- MH-No VB,LOF. Go od Fm. Itching of palms and feet worsening. Rpt bile acid, CMP. 28 wk labs. larc. Declines tdap. Rx ursodial. 12/23/24 -?-?-?-?-?-?-?-?-?-?-?-?- 31w 2d 200 lb 4 oz (+25 lb 4 oz) 121/75 Negative -?-?-?-?-?-?-?-?-?-?-?-?- Negative 134 31.2 -?-?-?-?-?-?-?-?-?-?-?-?- JV- still has on and off itching. bile acids overall normal. one level was 0.1 point above normal. [facility] at [facility]. she is not taking the ursodiol. plan growth ultrasound. 01/06/25 -?-?-?-?-?-?-?-?-?-?-?-?- 33w 2d 201 lb 6 oz (+26 lb 6 oz) 111/69 -?-?-?-?-?-?-?-?-?-?-?-?- 130 36 -?-?-?-?-?-?-?-?-?-?-?-?- JV- bile acids o n 12/23 were normal. Growth done today is normal. 01/20/25 -?-?-?-?-?-?-?-?-?-?-?-?- 35w 2d 204 lb 2 oz (+29 lb 2 oz) 114/79 Negative -?-?-?-?-?-?-?-?-?-?-?-?- Negative 140 35 -?-?-?-?-?-?-?-?-?-?-?-?- SM- only intermi ttent itching, not taking any medicine. no vb lof good fm no regular ctx 01/27/25 -?-?-?-?-?-?-?-?-?-?-?-?- 36w 2d 203 lb 6 oz (+28 lb 6 oz) 115/79 Negative -?-?-?-?-?-?-?-?-?-?-?-?- Negative 140 36 Cephalic 0 -?-?-?-?-?-?-?-?-?-?--?-?- SM- no vb lof go od fm no reuglar ctx gbs today no signifcant itching 02/03/25 -?-?-?-?-?-?-?-?-?-?-?-?- 37w 2d 205 lb 8 oz (+30 lb 8 oz) 126/77 Negative -?-?-?-?-?-?-?-?-?-?-?-?- Negative 140 37 Cephalic -?-?-?-?-?-?-?-?-?-?-?-?- SM- no vb lof go od fm no regular ctx co carpal tunnel symptoms 02/10/25 -?-?-?-?-?-?-?-?-?-?-?-?- 38w 2d 206 lb 8 oz (+31 lb 8 oz) 127/74 -?-?-?-?-?-?-?-?-?-?-?-?- 155 38 Cephalic 1 -?-?-?-?-?-?-?-?-?-?-?-?- 50 -3 LC- no vb/ ctx/lof. good fm. NST FHR Rate Baby A Baseline: 130 Variability:: Moderate Accelerations:: 15 x 15 Decelerations:: None NST Reactive:: Yes FHR Category:: Category I Uterine Activity:: 6-7 minutes ROS Constitutional Constitutional: Denies change in weight, fatigue, fever(s), headache(s), poor appetite or weakness Eyes Eyes: Denies blurry vision, change in vision, floaters, seeing flashes or spots in vision ENT HEENT: Denies dizziness, headache(s), loss taste/smell or sore throat Cardiovascular Cardiovascular: Denies chest pain, dizziness, dyspnea, irregular heart rhythm, lightheadedness, palpitations or rapid heart rate Respiratory/Chest Respiratory/Chest: Denies change in mental status, chest tightness, cough, dyspnea or breast pain Gastrointestinal Gastrointestinal: Denies anorexia, chewing difficulty, constipation, diarrhea or weight changes Genitourinary Genitourinary: Denies difficulty urinating, dysuria, flank pain, genital pain, urinary frequency or urinary urgency Musculoskeletal Musculoskeletal: Denies back pain, difficulty walking, extremity pain, joint pain, muscle cramps or muscle weakness Integumentary Integumentary: Denies lesions or unusual bruising Neurologic Neurologic: Denies abnormal movements, abnormal speech, dizziness, numbness, seizure-like activity, syncope or weakness Psychiatric Psychiatric: Denies behavioral changes, change in appetite, confusion, depression, homicidal ideation, suicidal ideation or suicidal thoughts Endocrine Endocrinology: Denies excessive sweating, polydipsia or polyuria Hematologic/Lymphatic Hematologic/Lymphatic: Denies anemia Allergic/Immunologic Allergic/Immunologic: Denies itchy eyes, lip swelling, throat swelling, tongue swelling or wheezing Vital Signs Vital Signs Vital Signs: 02/13/25 13:53 02/13/25 13:53 02/13/25 13:54 Temperature Temperature Source Pulse Rate 84 Respiratory Rate Blood Pressure 127/86 H BP Systolic 127 BP Diastolic 86 Pulse Ox 99 02/13/25 13:54 02/13/25 13:54 02/13/25 13:54 Temperature Temperature Source Temporal Pulse Rate 81 Respiratory Rate 16 Blood Pressure BP Systolic BP Diastolic Pulse Ox 02/13/25 13:54 Temperature 99.3 F H Temperature Source Pulse Rate Respiratory Rate Blood Pressure BP Systolic BP Diastolic Pulse Ox Weight Weight: 204 lb 3.2 oz Body Mass Index (BMI) 36.1 Physical Exam Const alert, oriented x3 and no apparent distress General Appearance: cooperative Orientation / Consciousness: awake HEENT normocephalic Neck full ROM Lymph Lymphatic: no lymphadenopathy noted Chest inspection of chest normal Resp normal respiratory effort and normal air movement Effort and Inspection: able to speak in complete sentences and symmetric chest movement GI soft to palpation and non-tender Inspection: gravid Palpation: soft; Negative for tender external exam normal Back/Spine normal to inspection Extremity normal to inspection and full ROM Skin no rashes or lesions noted Psych mental status grossly normal Appearance: grossly normal Speech: normal speech Labs Labs Labs: Blood Type O POSITIVE Antibody Screen NEGATIVE Hct 36.3 % (37-47) L Hgb 11.9 g/dL (12.0-15.0) L Obstetrics Ultrasound Syphilis Total Ab Nonreactive (Nonreactive) Rubella IgG Antibody Reactive (Nonreactive) Hep Bs Antigen Non-Reactive (Nonreactive) Hepatitis C Antibody Non-Reactive (Nonreactive) Chlamydia DNA (CASIE) Negative (Negative) N.gonorrhoeae DNA (CASIE) Negative (Negative) HIV 1&2 Antibody Nonreactive (Nonreactive) Glucose 1 Hr 50 gm 86 mg/dL (70-140) Rhogam given: No Miscellaneous Test Assessment & Plan (1) Encounter for induction of labor: PLAN: Patient presents IOL, plan management for with pitocin/AROM. Pain management: plans possible epidural. GBS negative. Management of any complications: none I have reviewed the COUNT INCLUD[facility] and made any clinically relevant updates. Dr Redman aware of assessment, plan and admission-agrees with above (2) Anxiety and depression: COMMENT: meds/counseling in past (3) Obesity affecting : COMMENT: BMI 31.4, HgBA1C ordered with NOB labs (4) Supervision of high-risk : QUALIFIERS: Trimester: third trimester Qualified Code(s): O09.93 - Supervision of high risk , unspecified, third trimester COMMENT: PRR , TALYA 02/24/25, boy PC: Etienne & Camille, Partner: Arsh. 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 FOB neg 08/25/20 Charges/Coding Multi Select Codes Urinary/Genital Urinary/Genital CPT Codes: No Charge
[2025-02-13] MEDS: Lactated Ringers 1,000 ML 50 ML IV (17:00)
[2025-02-13 17:17] LABS: Absolute Lymphocyte Count 2.57 X10^3/uL (0.83-4.51); Absolute Neutrophil Count 5.8 X10^3/uL (2.0-7.7); Basophil# 0.02 X10^3/uL; Basophil% 0.2 % (0-1); Eosinophil# 0.06 X10^3/uL; Eosinophils% 0.7 % (0-5); Hematocrit 35.4 % (37-47); Hemoglobin 11.7 g/dL (12.0-15.0); Lymphocyte # 2.57 X10^3/ul (0.83-4.51); Mean Corp Hgb Conc 33.1 g/dL (32-36); Mean Corpuscular Hgb 28.5 pg (27.0-32.0); Mean Corpuscular Volume 86.3 fL (81-99); Mean Platelet Vol. 10.6 fl (6.2-12.0); Monocyte# 0.68 X10^3/uL; Monocyte% 7.4 % (0-10); NRBC Flagged by Analyzer 0 % (0-5); Neutrophil # 5.81 X10^3/uL (2.7-7.7); Neutrophil % 63.2 % (47-70); Platelet Count 265 K/mm3 (150-450); RBC Distribution Width CV 12.5 % (11.6-14.6); White Blood Count 9.2 K/mm3 (4.4-11.0)
[2025-02-13 20:07] LABS: Amphetamine Urine NEGATIVE (<1000 ng/mL); Barbiturate Urine NEGATIVE (< 200 ng/mL); Benzodiazepine Urine NEGATIVE (< 200 ng/mL); Buprenorphine Urine NEGATIVE (< 200 ng/mL); Cocaine Urine NEGATIVE (< 300 ng/mL); Fentanyl, Urine NEGATIVE; Methadone Urine NEGATIVE (< 300 ng/mL); Opiates Urine NEGATIVE (< 300 ng/mL); Oxycodone, Urine NEGATIVE (< 100 ng/mL); PCP Urine NEGATIVE (< 25 ng/mL); THC Urine NEGATIVE (< 50 ng/mL)
--- NOTE | 2025-02-13 21:35 | PN_ITS ---
Progress Note Coping well with contractions current tracing: FHT: 135 Moderate variability reactive no decelerations category I tracing [place]: 3-4 minute Contractions Membranes:AROM clear SVE:4/70/-1 A/P: Continue with position changes Start pitocin per protocol Epidural per anesthesia GBS neg Anticipate Dr Redman aware of above assessment and agrees with plan of care Assessment & Plan Assessment/Plan (1) Encounter for induction of labor: (2) Anxiety and depression: (3) Obesity affecting : (4) Supervision of high-risk : QUALIFIERS: Trimester: third trimester Qualified Code(s): O09.93 - Supervision of high risk , unspecified, third trimester (5) : QUALIFIERS: Weeks of gestation: 38 weeks Qualified Code(s): Z3A.38 - 38 weeks gestation of Multi Select Codes Urinary/Genital Urinary/Genital CPT Codes: No Charge
[2025-02-13] MEDS: Oxytocin 15 Units/NS 250ml 15 UNITS/250 ML IV.SOLN 334 UNITS IV (22:49)
[2025-02-13] MEDS: Lidocaine 1% (20 ml mdv) 20 ML Vial INFILT (22:50)
--- NOTE | 2025-02-13 23:05 | EX.PCM.OBVAG ---
Assessment & Plan (1) Vaginal delivery: COMMENT: KW ching 38.1 AOL (2) Encounter for induction of labor: (3) Anxiety and depression: COMMENT: meds/counseling in past (4) Obesity affecting : COMMENT: BMI 31.4, HgBA1C ordered with NOB labs (5) Supervision of high-risk : QUALIFIERS: Trimester: third trimester Qualified Code(s): O09.93 - Supervision of high risk , unspecified, third trimester COMMENT: PRR , TALYA 02/24/25, boy PC: Etienne & Camille, Partner: Arsh. 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 FOB neg 08/25/20 Maternal Data Information TALYA Calculator Estimated Delivery Date Method Current WG Current Estimate 02/22/25 Ultrasound #1 38w 5d Other Estimates 02/27/25 LMP (Certain) 38w 0d Final TALYA: 02/22/25 Final TALYA Source: US >20 weeks Gestational age: 38.5 Vaginal Delivery Maternal Presentation Maternal Presentation: Active Labor Maternal Presentation: Presented to unit for monitoring after fall. Made cervical change from 2-4 and proceeded to delivery with augmenting- AROM only. Vaginal Delivery Information Procedure Performed: Spontaneous Vaginal Delivery Surgeon/Practitioner: Dixie Burr Date of Procedure: 02/13/25 Pre-Procedure Diagnosis: see problem list Post-Procedure Diagnosis: same Type of anesthesia: None Estimated Blood Loss: 200 Time of Delivery: 22:43 Findings Description of procedure: Progressed well to 10cm dilated and made steady progress with effective maternal pushing in hands and knees. Delivered the head in ЕЛЕНА presentation. The head was delivered atraumatically and no nuchal cord was identified. The anterior and posterior shoulders delivered without complication followed by the rest of the and the infant was stimulated and passed through maternal legs and placed on the maternal abdomen. Delayed cord clamping was employed for approximately 3 minutes. Cord was clamped and cut and gentle traction was applied to the cord and the placenta delivered spontaneously. Immediately following, it was noted to be intact with a 3 vessel cord. Uterine bleeding stable. The perineum and vagina were inspected and noted to have a first degree laceration which was repaired with 3-0 Vicryl in the usual fashion. EBL was 200cc. Patient and tolerated delivery well. Apgars 8/9. Dr Redman notified of vaginal delivery and orders reviewed. Physician agrees with current plan of care. Presentation: Vertex Amniotic Membrane Rupture Type: Artificial Amniotic Fluid Description: Clear Placental Delivery Description: Spontaneous Placenta Disposition: [facility] Specimen collected: No Cord Vessel Description: 3 Vessels Cord Entanglement: None Infant A Gender: Male (1 minute): 8 (5 minute): 9 Delayed Cord Clamping: Yes [employer] Tr[employer] labor gang supervisor: No Post Vaginal Deli Medications given after delivery: IV Pitocin Episiotomy Description: None Laceration: 1st degree Complication Complications: No Multi Select Codes Urinary/Genital Urinary/Genital CPT Codes: 23407 Vaginal Delivery+ PP Care([facility])
--- NOTE | 2025-02-13 23:11 | DCINST_ITS ---
Discharge Instructions Diet Discharge Diet: No restrictions DC O2, CPAP, BIPAP needs Home O2 Discharge instructions: No Dressing / Incision Discharge Activity: Return to Normal Activity May resume sexual activity in: 6-8 weeks Dressing / Incision Call your doctor if you observe: Fever of 101 or Higher, Coldness, Increased Pain, Numbness or Tingling, Change in Color, Inability to urinate, Inability to have a bowel movement, Using more than 1 pad per hour, Shortness of breath, Dizziness, Fainting spells, Swelling in the ankles, Chest pain, Increased p alpitations (irregular heartbeat), Calf discomfort and Uncontrolled pain Follow Up Care Please Follow Up With: Dixie Burr CNM When: Please call the office to schedule your follow up appointment in 6 weeks. If you had high blood pressure please call to schedule an appointment in 2 weeks. Test Results: Test results from this visit will be discussed in further detail at your follow- up appointment, if applicable. Discharge Plan Admission Admit Date/Time: 02/13/25 15:57 Attending Provider: Dixie Burr Primary Care Provider: Care Physician,Seu Primary Discharge Orders/Prescriptions Prescriptions: No Action DHA 200 mg capsule 1 mg PO DAILY Referrals / Follow Up: Care Physician,Sue Primary [Primary Care Provider] -
[2025-02-13] MEDS: Oxytocin 15 Units/NS 250ml 15 UNITS/250 ML IV.SOLN 83 UNITS IV (23:20)
[2025-02-14] VITALS (22 sets, daily range): BP systolic 112–132; BP diastolic 62–87; PULSE 80–103; RESP 14–16; TEMP 36.1–36.9; O2SAT 94–100
[2025-02-14] MEDS: Acetaminophen 500 MG Tablet 1000 MG PO (08:47)
--- NOTE | 2025-02-14 11:57 | PN.OBGYN_ITS ---
Subjective Subjective Patient doing well without complaints. Tolerating PO. Ambulating and voiding without difficulty. feeding well. Denies chest pain, shortness of breath, calf pain/swelling, fevers, chills, lightheadedness. Objective Data Objective Data Vital Signs: Vital Signs Temp Pulse Resp BP Pulse Ox O2 Del Method 98.5 F 98 16 132/81 H 96 Room Air 02/14/25 08:44 02/14/25 08:44 02/14/25 08:44 02/14/25 08:44 02/14/25 04:33 02/14/25 08:44 Oxygen Delivery Method Room Air Weight: 204 lb 3.2 oz Body Mass Index (BMI) 36.1 Intake & Output: Intake and Output for Last 24 Hours 02/12/25 02/13/25 02/14/25 23:59 23:59 23:59 Intake Total 550 / 550 250 / 250 Output Total 200 / 200 600 / 600 Balance 350 / 350 -350 / -350 Lab / Micro Data 02/13/25 17:00 Labs: Laboratory Results - last 24 hr 02/13/25 17:00: WBC 9.2, RBC 4.10 L, Hgb 11.7 L, Hct 35.4 L, MCV 86.3, MCH 28.5, MCHC 33.1, RDW Std Deviation 39.0, RDW Coeff of Melba 12.5, Plt Count 265, MPV 10.6, Immature Gran % (Auto) 0.500, Neut % (Auto) 63.2, Lymph % (Auto) 28.0, Wilkinson % (Auto) 7.4, Eos % (Auto) 0.7, Baso % (Auto) 0.2, Absolute Neuts (auto) 5.8, Absolute Lymphs (auto) 2.57, Nucleated RBC % 0, Syphilis Total Ab Cancelled, Blood Type O POSITIVE, Antibody Screen NEGATIVE 02/13/25 19:30: Urine Opiates Screen NEGATIVE, U Buprenorphine Qual NEGATIVE, Ur Oxycodone Screen NEGATIVE, Urine Methadone Screen NEGATIVE, Urine Fentanyl Screen NEGATIVE, Ur Barbiturates Screen NEGATIVE, Ur Phencyclidine Scrn NEGATIVE, Ur Amphetamines Screen NEGATIVE, U Benzodiazepines Scrn NEGATIVE, Urine Cocaine Screen NEGATIVE, U Cannabinoids Screen NEGATIVE ROS Constitutional Constitutional: Reports systems reviewed and no addt'l complaints, except as documented Cardiovascular Cardiovascular: Reports systems reviewed and no addt'l complaints, except as documented Respiratory/Chest Respiratory/Chest: Reports systems reviewed and no addt'l complaints, except as documented Gastrointestinal Gastrointestinal: Reports systems reviewed and no addt'l complaints, except as documented Physical Exam Const alert, oriented x3 and no apparent distress HEENT Head and Scalp: atraumatic Resp normal respiratory effort GI soft to palpation and non-tender Bimanual Exam - Vag & Uterus: uterus non-tender Uterus Palpation: uterus fundus firm (below Umbilicus) Assessment & Plan (1) Vaginal delivery: COMMENT: KW boy 38.1 AOL PLAN: Plan s/p PPD # 1 1. routine post delivery care 2. breast feeding- support given 3. rh positive 4. rubella immune
[2025-02-15 03:00] VITALS: BP 131/88; PULSE 82; RESP 16; TEMP 36.5; O2SAT 97
--- NOTE | 2025-02-15 06:31 | PCM.PN.OB ---
Subjective Subjective Patient doing well without complaints. Tolerating PO. Ambulating and voiding without difficulty. feeding well. Denies chest pain, shortness of breath, calf pain/swelling, fevers, chills, lightheadedness. Objective Data Objective Data Vital Signs: Vital Signs Temp Pulse Resp BP Pulse Ox O2 Del Method 97.7 F L 82 16 131/88 H 97 Room Air 02/15/25 03:00 02/15/25 03:00 02/15/25 03:00 02/15/25 03:00 02/15/25 03:00 02/15/25 03:00 Oxygen Delivery Method Room Air Weight: 204 lb 3.2 oz Body Mass Index (BMI) 36.1 Intake & Output: Intake and Output for Last 24 Hours 02/13/25 02/14/25 02/15/25 23:59 23:59 23:59 Intake Total 550 / 550 250 / 250 Output Total 200 / 200 600 / 600 Balance 350 / 350 -350 / -350 Lab / Micro Data 02/13/25 17:00 ROS Constitutional Constitutional: Reports systems reviewed and no addt'l complaints, except as documented Cardiovascular Cardiovascular: Reports systems reviewed and no addt'l complaints, except as documented Respiratory/Chest Respiratory/Chest: Reports systems reviewed and no addt'l complaints, except as documented Gastrointestinal Gastrointestinal: Reports systems reviewed and no addt'l complaints, except as documented Physical Exam Const alert, oriented x3 and no apparent distress HEENT Head and Scalp: atraumatic Resp normal respiratory effort GI soft to palpation and non-tender Bimanual Exam - Vag & Uterus: uterus non-tender Uterus Palpation: uterus fundus firm (below Umbilicus) Assessment & Plan (1) Vaginal delivery: COMMENT: KW boy 38.1 AOL PLAN: Plan routine pp care doing well
[2025-02-15 08:10] VITALS: BP 120/87; PULSE 82; RESP 16; TEMP 36.6; O2SAT 97
--- NOTE | 2025-02-15 10:17 | CASEMGMT ---
Social Work Labor and Delivery Unit Patient Address:[address] [place] [id number] Phone number: [phone] Date and Time of Referral:? 02/13/25, 1708 Referred By: Dixie Burr Date and time of intervention:? 02/15/25, 98 Reason for Referral:?? hx of drug use in high school, hx of anxiety and depression Sw completed chart review and acknowledges social work consult due to maternal mental health history and prior substance use. Sw presented to bedside and introduced self to mother of baby (TRINA Tam). Sw explained reason for sw involvement and completed psychosocial assessment. Informant:?? Medical record and mother of baby (SERGE) History:? SERGE is 29 year old female who is 5, para 2- now 3 following labor and delivery of . SERGE presented to hospital and delivered baby via vaginal delivery on 02/14/25 at 38 weeks gestation. Baby boy, named Damaso Schilling, was born weighing 6lb 15oz with apgars of 8 and 9 at one and five minutes of life, respectfully. SERGE received routine care during with [place]. SERGE denies housing concerns, and has all necessary baby supplies, including: car seat, safe sleep space, clothes, diapers and wipes. SERGE says she has supports found in father of baby (DANE- Arsh Clemens), her mom and her neighbors. SERGE states that she and DANE have been together for 10 years after meeting each othe while both working at [employer]. 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 SERGE is connected to beneficial community resources, such as insurance through Medicaid ([facility]) and [place]. SERGE states that she was diagnosed with anxiety and depression when she was a young child, however she has learned more about mental health and herself, and thinks that she was misdiagnosed and instead should be diagnosed with ADHD. SERGE states that she has done well with her mental health throughout and feels well now that baby has been born. SERGE states that when her daughter was born 4 years ago she struggled with anxiety during her and afterwards. SERGE states that she was on Zoloft temporarily, but did not feel as though she did not need it for the past couple of years. SERGE states that she is knowledgeable of signs and symptoms to be mindful of during this period, and if she would struggle FOB and her neighbors would be able to recognize that. Sw and MOB discussed healthy and safe coping skills that MOB can utilize regularly to help minimize symptoms of baby blues or depression/ anxiety. MOB denies substance use prior to and during . MOB states that she feels that because she was misdiagnosed as a young child, she was prescribed the wrong kinds of medications, which ultimately led to her substance use. MOB states that from 8th- her Marv year in high school she would abuse pills and drink alcohol regularly. MOB states that she has not used drugs in a long time and has no intention of using substances. 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 MOB states that she has family and friends that she can talk to if she starts to feel as though she is struggling with her mental health, including her OBGYN. Sw educated MOB on shaken baby prevention and ABCs of safe sleep. MOB expressed understanding. Assessment:? MOB and baby admitted following labor and delivery of . MOB was welcoming to sw, and receptive to sw involvement and support. MOB was observed sitting on chair comfortably and feeding baby, MOB states okay to continue to meet and complete assessment. MOB denies having symptoms of baby blues or depression following delivery of . MOB talkative about her mental health experiences in the past and how that has shaped her life at this time. MOB states that she feels calm and like herself, reporting to feeling a kline and connection with baby. MOB was observed to provide loving and appropriate hands on care to . Plan:??MOB and baby to be discharged when medically ready. Handouts and information provdied to MOB regarding: mental health diagnoses and symptoms, shaken baby prevention, ABCs of safe sleep, list of [place] health resources, and Help Me Grow. No further needs requested or indicated. Fco Barraza, DATA CONTROL CLERK SUPERVISOR, ASSISTANT GROCERY STORE MANAGER
[2025-02-15 12:51] VITALS: BP 130/87; PULSE 89; RESP 14; TEMP 36.8; O2SAT 96
[2025-02-15 14:40] VITALS: RESP 16
== END 2025-02-15 14:40 | disposition home or self-care (01) | DRG 560 ==
LOC: WPOUT 16:00 → WP 16:00
PROVIDERS: Admitting Provider Advanced Practice Midwife; Referring Provider Advanced Practice Midwife; Visit Provider Advanced Practice Midwife
DX: O76 Abnormality in fetal heart rate and rhythm complicating labor and delivery (principal); Z37.0 Single live birth; O99.344 Other mental disorders complicating childbirth; F32.A Depression, unspecified; O99.214 Obesity complicating childbirth; F41.9 Anxiety disorder, unspecified; Z3A.38 38 weeks gestation of pregnancy; Z87.891 Personal history of nicotine dependence; N96 Recurrent pregnancy loss; O99.893 Other specified diseases and conditions complicating puerperium; O70.0 First degree perineal laceration during delivery
CPT/HCPCS: 59025; 59050; 80307; 85025; 86850; 86900; 86901; 99221; G0378

== ENCOUNTER → 2025-03-01 | Outpatient (CLI) | payer MEDICAID, SELFPAY | END | disposition home or self-care (01) | LOC: LABSPEC 16:25 | PROVIDERS: Referring Provider Nurse Practitioner Family; Visit Provider Nurse Practitioner Family | DX: R30.0 Dysuria (principal) | CPT/HCPCS: 87086; 87088 ==